=== PATIENT | female | born 1985 | race Caucasian/White ===

== ENCOUNTER 2021-01-15 08:51 | Outpatient (REF) | payer OTHER, SELFPAY | END 2021-01-15 08:52 | disposition home or self-care (01) | LOC: HO.WFDLDS 08:51 | PROVIDERS: PCP Internal Medicine; Visit Provider Internal Medicine | DX: Z20.822 Contact with and (suspected) exposure to COVID-19 (principal) | CPT/HCPCS: 36415; C9803; U0003; U0005 ==

== ENCOUNTER 2025-02-26 10:15 | Outpatient (AMB) | payer OTHER, SELFPAY ==
--- NOTE | 2025-02-26 10:36 | A.OFFPC_ITS ---
Vital Signs 02/26/25 10:41 Height 5 ft 4.96 in Weight 172 lb BMI 28.7 BP 102/70 Blood Pressure Location Rt brachial Position Sitting Respiration 14 Pulse 72 Pulse Source Pulse Oximeter Temp 98 F Temp Source Oral Pulse Oximetry (%) 99 Oxygen Delivery Method Room Air Intake Visit Reasons: nba from [facility] Intake Note: New patient visit Doctor Of Podiatric Medicine Required: No Allergies bupropion [From Wellbutrin] Allergy (Severe, Verified 02/26/25 10:39) Hives Tobacco use date assessed: 02/26/25 Dental Screening Dental Screen Date: 02/26/25 Did you have a dental visit in the last 12 months?: Yes Did you have a dental problem in the last 6 months where you did not have access to dental care?: No Was dental information given to patient?: Patient has dentist HPI nba from [facility] HPI Details Patient is a 39-year-old female who [facility] She is transferring from [facility]. General: She works hard on diet and weight loss. Following with weight watchers for glp1. States that she has lost 25 lb so far with this over the last 5 months. 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 Following with [facility]. Progress Clerk: UTD-she does report today that she has had an increase in frequency of menstruation with shorter cycles and heavier periods. She did follow with her crane service technician who recommended going on an OCP. She states that she has felt very sick in the past with the OCPs and would like to have her hormones checked. She is interested in hormone replacement therapy if indicated. Mammo: Due this year. Booked in April. [facility] Surgical History (Updated 02/26/25 @ 10:44 by Cari Beaver CMA) History of tonsillectomy Family History (Updated 02/26/25 @ 10:48 by Cari Beaver CMA) Father HTN (hypertension) High blood cholesterol Paternal Grandfather HTN (hypertension) High blood cholesterol Paternal Grandmother Colon cancer Liver cancer Maternal Grandmother Alcoholic Other FH: mental illness Substance abuse Social History Housing: House Alcohol intake: current Patient Tobacco Use Status: Never used Tobacco e-Cigarette/Vaping Use: Never Used Second Hand Smoke Exposure: No service: No Current occupational status: employed 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 1. Little interest or pleasure in doing things: not at all 2. Feeling down, depressed, or hopeless: not at all 3. Trouble falling or staying asleep, or sleeping too much: several days 4. Feeling tired or having little energy: several days 5. Poor appetite or overeating: not at all 6. Feeling bad about yourself - or that you are a failure or have let yourself or your family down: not at all 7. Trouble concentrating on things, such as reading the newspaper or watching television: not at all 8. Moving or speaking so slowly that other people could have noticed. Or the opposite - being so fidgety or restless that you have been moving around a lot more than usual: not at all 9. Thoughts that you would be better off or of hurting yourself in some way: not at all Total score: 2 Depression Screening Interpretation: Negative Depression Screening Done: Yes 58508 - PHQ-9 Billing: Yes Source: Developed by Drs. Grabiel Higgins, Kim Rome, Ibrahima Medrano and colleagues, with an educational alexa from [employer]. Thrive Questionnaire Date Thrive assessed: 02/23/25 I am a: Patient What is your living situation today?: I have a steady place to live Within the past 12 months, did the food you bought not last and you didn't have the money to get more?: Never true Within the past 12 months, did you worry whether your food would run out before you got money to buy more?: Never true Do you have trouble paying for medicines?: No Do you have trouble getting transportation to medical appointments?: No Do you have trouble paying your heating and electricity bill?: No Do you have trouble taking care of your child, family member or friend?: No Do you have trouble with day-to-day activities such as bathing, preparing meals, shopping, managing finances, etc.?: No Are you currently unemployed and looking for a job?: No Are you interested in more education?: No Please select the resources that you would like help with: None Currently or been in a relationship where the following occur: No concerns reported THRIVE Score: 0 AUDIT C Alcohol Use Questionnaire (AUDIT-C) 1. How often do you have a drink containing alcohol?: 2-3 times a week 2. How many drinks containing alcohol do you have on a typical day when you are drinking?: 1 or 2 3. How often do you have six or more drinks on one occasion?: Less than monthly Total Score: 4 Score Reviewed/Action Taken: Yes KASSIDY-7 AMB Questionnaire KASSIDY-7 Feeling nervous, anxious, or on edge: 1 = Several days Not being able to stop or control worryin = Several days Worrying too much about different things: 1 = Several days Trouble relaxin = Several days Being so restless that it is hard to sit still: 0 = Not at all Becoming easily annoyed or irritable: 1 = Several days Feeling afraid as if something awful might happen: 0 = Not at all Total KASSIDY-7 score (0-4 normal; 5-9 mild; 10-14 moderate; 15-21 severe): 5 Source: Developed by Drs. Grabiel Higgins, Kim Rome, Ibrahima Medrano and colleagues, with an educational alexa from [employer]. KASSIDY-7 Assessment Billing KASSIDY-7 Assessment Tool: KASSIDY-7 Assessment 08788 Physical exam (Primary Care) PHQ-9: PHQ-9 Score PHQ-9: Total score 2 02/26/25 10:39 Depression Screening Interpretation: Negative Thrive Assessment: Date of Thrive Assessment Date Thrive assessed 02/23/25 02/26/25 10:39 Currently or been in a relationship where the following occur: No concerns reported Const Orientation/consciousness: patient oriented x3 HENMT Ears: hearing grossly normal bilaterally Neck Thyroid: Thyroid normal Lymphatic: no lymphadenopathy noted Resp Auscultation: clear to auscultation bilaterally Cardio Rate: regular rate Rhythm: regular rhythm Heart sounds: S1 normal heart sound present and S2 normal heart sound present GI Inspection: Yes normal to inspection Palpation (GI): Soft to palpation and Other GI palpation findings present (no ntender, no cva tenderness) Auscultation: normoactive bowel sounds Rectal Exam - Female: deferred Skin General skin exam: no rashes or lesions noted Neuro General: patient oriented x3, gait normal and no focal motor deficits Coding Level of Care Code Est Pt Level 4 (47766) Complex EM visit Add On G2211 Diagnoses Menorrhagia N92.0 Fatigue R53.83 Additional Codes PHQ-9 - 64990 - PHQ-9 Billing: Yes ([id number]) KASSIDY-7 Assessment Billing - KASSIDY-7 Assessment Tool: KASSIDY-7 Assessment 79495 ([id number]) Assessment & Plan Assessment & Plan (1) Menorrhagia: Code(s): N92.0 - Excessive and frequent menstruation with regular cycle Category: Medical Plan: Pelvic ultrasound ordered. We will follow up pending test results. Advised to follow up with Gynecology Did discuss with patient that I would not prescribe hormone replacement therapy but she could follow with functional medicine if she would like. (2) Fatigue: Code(s): R53.83 - Other fatigue Category: Medical Plan: Labs ordered. We will review. Orders: Orders Vitamin B12 and Folate Today N92.0 - Excessive and frequent menstruation with regular cycle, R53.83 - Other fatigue TSH reflex Free T4 Today N92.0 - Excessive and frequent menstruation with regular cycle, R53.83 - Other fatigue US pelvic and transvaginal Today N92.0 - Excessive and frequent menstruation with regular cycle Follicle Stimulating Hormone Today N92.0 - Excessive and frequent menstruation with regular cycle, R53.83 - Other fatigue, R63.5 - Abnormal weight gain Comprehensive [place]. Panel Fast Today N92.0 - Excessive and frequent menstruation with regular cycle, R53.83 - Other fatigue Complete Blood Count Auto Diff Today N92.0 - Excessive and frequent menstruation with regular cycle, R53.83 - Other fatigue Lipid Panel Today N92.0 - Excessive and frequent menstruation with regular cycle, Z13.220 - Encounter for screening for lipoid disorders UA CC w/rflx Micro + Cult Today N92.0 - Excessive and frequent menstruation with regular cycle, Z13.220 - Encounter for screening for lipoid disorders Cortisol Random Today N92.0 - Excessive and frequent menstruation with regular cycle, R53.83 - Other fatigue, R63.5 - Abnormal weight gain Estrad Free (Tot Ultra + Free) Today N92.0 - Excessive and frequent menstruation with regular cycle, R53.83 - Other fatigue, R63.5 - Abnormal weight gain Testosterone, Free/Total Today N92.0 - Excessive and frequent menstruation with regular cycle, R53.83 - Other fatigue, R63.5 - Abnormal weight gain
[2025-02-26 10:41] VITALS: BP 102/70; PULSE 72; RESP 14; TEMP 36.6; O2SAT 99; BMI 28.7
== END 2025-02-26 11:17 | disposition home or self-care (01) ==
LOC: HO.HMCFM 10:16
PROVIDERS: PCP Internal Medicine; Visit Provider Physician Assistant
DX: N92.0 Excessive and frequent menstruation with regular cycle (principal); R53.83 Other fatigue

== ENCOUNTER → 2025-02-26 10:15 | Outpatient (BNVA) | payer OTHER, SELFPAY | PROVIDERS: PCP Physician Assistant; Visit Provider Physician Assistant | DX: N92.0 Excessive and frequent menstruation with regular cycle (principal); R53.83 Other fatigue | CPT/HCPCS: 96127 ==

== ENCOUNTER 2025-08-15 13:01 | Outpatient (REF) | payer OTHER, SELFPAY ==
--- NOTE | ~2025-08-15 | US_ITS ---
CLINICAL HISTORY: N92.0 - Excessive and frequent menstruation with regular cycle US pelvis transabdominal and transvaginal Comparison: None provided Findings: Transabdominal scanning performed for overall anatomy. Transvaginal scanning performed for additional detail. Anteverted uterus is 8.0 cm length. There are myometrial 4.0 x 3.2 x 3.1 cm and 1.7 x 1.9 x 1.9 cm leiomyomata. Endometrium 13 mm thickness. Right ovary 4.2 x 2.8 x 2.1 cm. Left ovary 2.8 x 2.7 x 1.8 cm. Normal color Doppler of both ovaries. There is a thin-walled right ovarian 2.1 x 1.8 x 1.8 cm avascular hypoechoic mass, possible debris within a cyst. No free fluid. IMPRESSION: 1. Uterine myometrial leiomyomata. 2. Nonspecific prominent endometrium, possibly physiologic. Clinical follow-up if there is dysfunctional uterine bleeding, recommended. 3. Possible hemorrhagic right ovarian cyst. Consider an 8-12 week follow-up pelvic ultrasound to reassess. This document has been electronically signed by: Camilo Holm MD on 08/18/2025 08:41:28
--- OUTSIDE RECORDS SUMMARY | 2025-08-15 15:38 | XMS_ITS | Data Portability ---
Author Organization [facility] Lenny Ramirez [facility] Address [address] [place] [address] Care Team Providers Care Facility Rehab Director Name Role Phone RAE ANGELIA Primary Care Provider [phone] Assessment Encounter Date Assessment Date Assessment LastModified by Organization Details LastModified Time 11/21/2024 11/21/2024 Patient diagnosi s discussed with patient today. 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 Has well-maintained joint spaces on x-ray has no physical exam findings have been consistent with ligamentous or meniscal pathology. Discussed multiple treatment options to include anti-inflammatori es formal physical therapy and a cortisone injection. Patient was to go forward with a cortisone injection as she is currently getting ready for a trip as well as she will start working with a colleague of hers who is a physical therapist on a patellofemoral physical therapy program. Patient agrees to treatment plan. Discussed role of as needed injections every 3 to 6 months and call for such at her convenience. All questions asked and answered. [email or web address] Not available 11/21/2024 11:33:12 Plan of Treatment Reminders Order Date Submit Date Provider Last Modified By Organization Details Last Modified Time Details Appointments None record ed. Lab None record ed. Referral None record ed. Procedures None record ed. Surgeries None record ed. Imaging XR, knee, 4 or more view - room 213, R knee 4v 025 11/21/19 25 [email or web address] 1 [facility], [address], [address], [place], [address], 01/23/202 5 12:25:25 Medication Orders None record ed. Patient TargetsNo targets recorded. Patient InstructionsNo instructions recorded. Reason for Referral None Reported. Results Created Date Observation Date Name Description Value Unit Range Abnormal Flag Note LastModifiedBy Organization Detail LastModifiedTime 11/21/19 25 11/21/2024 XR, knee, 4 or more view http:/ [email or web address] ?Encry pted=s hAaTro YD8dLq bEUv6g %2BXZw aYqtaq 0bqfl% 2Fg9IQ a4ajBk vP9nXo QUaueC m3YtLR FvZlgJ JJ8mAn HZtai3 2b2530 AC0Kqb 3WBU6O kKiQtr Mw INTERFACE [facility] [address] [address], [place], [address], 11/21/2024 11:06:37 11/21/19 25 11/21/2024 XR, knee, 4 or more view [email or web address] ?Encry pted=s hAaTro YD8dLq bEUv6g %2BXZw aYqtaq 0bqfl% 2Fg9IQ a4ajBk vP9nXo QUaueC m3YtLR FvZlgJ JJ8mAn HZtai3 8s5231 AC0Kqb 3WBU6O kKiQtr MwF INTERFACE [facility] [address] [address], [place], [address], 11/21/2024 11:06:40 02/18/20 25 02/15/2025 MRI, knee, w/o contr ast [facility] Access ion Number : [id number] Mona carlton Name: Sheri Landa Record Number : [id number] Date of : 1984 Date of Exam: 2024 Referr ing Physic greg: [facility] [address] , [address] [place] [address] Exam: MR Knee (C-) CPT 22851 - Right Room Descri ption: [facility] Pion 3T Histor y: Pain in the right knee, questi on medial menisc al tear. The patien t report s diffus e right knee pain which varies in severi ty since 2023. Techni que: MRI of the right knee was perfor med withou t intrav enous contra st. Compar allen: None. Findin gs: Joint effusi on: No joint effusi on is presen t. Hoffa' s fat pad is unrema rkable . Mild nonspe cific edema is seen in the superi or aspect of the prefem oral fat. Menisc i: The medial and latera l menisc us both appear normal . No menisc al tear is seen. Tendon s and ligame nts: The ACL and PCL are intact . The collat eral ligame nts are unrema rkable . The ilioti bial band is unrema rkable . The extens or mechan ism appear s normal . Articu lar cartil age: The articu lar cartil age is normal in thickn ess. No focal defect s are seen. Bone: The bone and bone marrow are normal . Impres lisandro: 1. No eviden ce of menisc al or crucia te ligame nt tear. 2. Mild nonspe cific edema in the superi or aspect of the prefem oral fat pad.. Electr onical ly Signed By: Naomi Bernardo ra, MD [email or web address] [facility] ([facility]) [address], [place], [address], 02/21/2025 11:33:44 Result Notes Documentation Provider Name and Address Organization Details Recorded Time Xr, Knee, 4 Or More View : [email or web address] Encrypted=jsSqIrbZL8xTvkQ Uv6g%7UFSfsLmnmz9gspx%2Fg 5POr0epTxhO6uLoCJxwnOa3Uz EGZoHrsFAP8pQxHDfvt26z803 5RM4Xph4JTT8JtCoZwfHnK Not Available [facility] 11/21/2024 11:06:38 Xr, Knee, 4 Or More View : [email or web address] Encrypted=hrKgTqkKH0uTwiG Uv6g%4XSEefSbrdt5jtip%2Fg 0PBz7feRzeX0oTxDPerkYk0Zn HTPsBnqMIJ9nUsPJnem23a380 5DR6Lze1GBK2XhAeXypHdH Not Available [facility] 11/21/2024 11:06:40 Mri, Knee, W/o Contrast : [facility] Accession Number: [id number] Patient Name: Sheri Landa Date of : 1985 Date of Exam: 02-15-2025 Referring Physician: Martin Blankenship [facility] [address] [place] [address], [address] [place] [address] Exam: MR Knee (C-) CPT 62908 - Right Room Description: [facility] Pion 3T History: Pain in the right knee, question medial meniscal tear. The patient reports diffuse right knee pain which varies in severity since August 2024. Technique: MRI of the right knee was performed without intravenous contrast. Comparison: None. Findings: Joint effusion: No joint effusion is present. Hoffa's fat pad is unremarkable. Mild nonspecific edema is seen in the superior aspect of the prefemoral fat. Menisci: The medial and lateral meniscus both appear normal. No meniscal tear is seen. Tendons and ligaments: The ACL and PCL are intact. The collateral ligaments are unremarkable. The iliotibial band is unremarkable. The extensor mechanism appears normal. Articular cartilage: The articular cartilage is normal in thickness. No focal defects are seen. Bone: The bone and bone marrow are normal. Impression: 1. No evidence of meniscal or cruciate ligament tear. 2. Mild nonspecific edema in the superior aspect of the prefemoral fat pad.. Electronically Signed By: Naomi Blankenship PA-C [address] [place] [address] [facility], [place], [address], [facility] - [facility] 02/21/2025 11:33:44 Problems Name Problem SNOMED Code Status Onset Date Resolution Date Notes Provider Name and Address Organization Details Recorded Time No complaints 483297509 Active Status : 'A'; Not Available [facility] 4 09:21:15 Problem Notes None recorded. Procedures Surgical History Date Name Laterality Status Provider Name and Address Organization Details Recorded Time 5 Knee Kenalog 1cc L/R completed Martin Blankenship PA-C [address], [place], [address], [place] - [facility] 11/21/2024 11:31:22 Imaging Results None recorded. Procedure Notes None recorded. Medical Equipment None Reported. Allergies Allergen ID Allergen Name Allergen Category Reaction Reaction Severity Criticality Documentation Date Start Date Code Code System Note Provider Name and Address Organization Details Recorded Time 952576 Wellbutri n medicatio n Not available Not available Not available 01/01/20242021 55704 RxNorm Not Available [facility] 4 15:37:51 142348 Product containin g penicilli n (product) medicatio n Not available Not available Not available 01/01/20242017 64336 8001 SNOMED Not Available [facility] 4 15:37:51 Medications Name Sig Start Date Stop Date Status Note LastModified by Organization Details LastModified Time cyclobenzap rine 10 mg tablet TAKE 1 TABLET BY MOUTH 3 TIMES A DAY NEEDED FOR MUSCLE SPASM FOR 10 DAYS active Not Available Not Available No t Available fluconazole 150 mg tablet TAKE 1 TABLET BY MOUTH ONCE active Not Available Not Available No t Available clonazepam 0.5 mg tablet TAKE 1 TABLET BY MOUTH TWICE A DAY NEEDED FOR ANXIETY active Not Available Not Available No t Available clonazepam 2 mg tablet TAKE 1 TABLET BY MOUTH EVERY DAY AT BEDTIME NEEDED FOR SLEEP active Not Available Not Available No t Available zolpidem 10 mg tablet TAKE 1 TABLET BY MOUTH EVERY NIGHT FOR SLEEP active Not Available Not Available No t Available nitrofurant oin monohydrate /macrocryst als 100 mg capsule TAKE 1 CAPSULE BY MOUTH TWICE A DAY FOR 5 DAYS active Not Available Not Available No t Available eszopiclone 3 mg tablet TAKE 1 TABLET BY MOUTH EVERY NIGHT NEEDED FOR SLEEP active Not Available Not Available No t Available oxycodone HCl-oxycodo ne-ASA 1 every [address] under this medicatio n 10/12 completed Statu s: 'Disc ontin ued'; Not Available Not Available Not Available Vitals Date Recorded Body height Body mass index (BMI) Body weight Provider Name and Address Organization Details Last Updated DateTime 11/21/2024 170.18 cm 27.9 kg/m2 14395.44 g Damari Villa [place] - [facility] 11/21/2024 10:59:11 Social History None recorded. Functional Status None recorded. Mental Status None recorded. Family History Nothing Reported. Medical History Condition Response Headaches Y Gynecological HistoryNo gynecological history recorded. Obstetrics History GPAL:G 0 P 0 0 0 0 Past Encounters Encounter ID Performer Location Encounter Start Date Encounter Closed Date Diagnosis/Indication Diagnosis SNOMED-CT Code Diagnosis ICD10 Code Diagnosis IMO Codes Diagnosis Note [id number] SHAMAR Mcnally [address] [place] [address] 11/21/2024 10:31:54 12/03/2024 11:17:04 Pain of right knee joint 1982198350 35763 M25.561 896083 You have been provided with a cortisone injection in order to reduce the pain and inflammati on that you are experienci ng. The injection consists of two medication s. Cortisone (an anti-infla mmatory that will take 48-72 hours to take effect) and Lidocaine (a numbing agent that will last 2-3 hours). Please note that not everyone will have a lasting response following the injection. PATIENT INSTRUCTIO NSOnce the Lidocaine wears off, you may have an increase in your pain. I recommend icing the affected area for 20 minutes 3-4 times per day.It is recommende d that you refrain from any high level activities using the joint or limb that was injected for approximat rhina 24-48 hours. Normal day-to-day activities are generally not a problem.PO SSIBLE SIDE EFFECTSInd ividuals with dark complexion s may experience some skin discolorat ion locally at the site of the injection. There is the possibilit y of an increase in discomfort within 48 hours following the injection. This is called a f lare . To help minimize the chances of this, please see the post-injec tion instructio ns above.Ther e is a less than 1% chance of an infection. If you notice any signs of infection (redness, warmth, drainage, fever greater than 100 degrees) please call our office or contact us through the portal [facility]. Health Concerns Section Related Observation LastModified by Organization Detai ls LastModified Time None Recorded Concern Status LastModified by Organization Details LastModified Time None Recorded Advance Directives Directive None Recorded Payers Insurance Date Sequence Insurance Name Policy Number Policy [place] Covered Member ID [place] Member ID Guarantor Name 12/03/2024 1 [facility] [id number] Sheri Landa [id number] Sheri Landa Notes Date Note Type Note Provider Name and Address Organization Details Recorded Time 11/21/2024 text/html I am seeing the patient today under the supervision of who was available but who did not see the patient. Patient was in for evaluation of right knee pain. Patient reports pain has been going on for couple of months. Does not recall any specific injury to account for this. Patient was training for marathon over the summer but started shinsplints on that left side and transition to more weight training and seems to aggravate the knee. Pain discomfort is localized in the anterior aspect of that knee. Has difficulty with any sort of knee flexion activity to include kneeling squatting going up down stairs getting up from a seated position and even sitting for any extended length of time. Patient is on hfyu-byx-dvcndan anti-inflammatories home stretching strengthening program without benefit. Patient has had no previous injury surgeries or cortisone injections Martin Blankenship PA-C [address] [facility] [address] [facility] [address], [place], [address], [place] [facility] 11/21/2024 11:33:49 OBGyn Episode No OBEpisode recorded.
== END 2025-08-15 13:02 | disposition home or self-care (01) ==
LOC: HO.HMGCX 13:01
PROVIDERS: PCP Internal Medicine; Visit Provider Physician Assistant
DX: N92.0 Excessive and frequent menstruation with regular cycle (principal)
CPT/HCPCS: 76830; 76856

== ENCOUNTER → 2025-08-15 13:03 | Outpatient (BNV) | payer OTHER, SELFPAY | PROVIDERS: PCP Internal Medicine; Visit Provider Specialist | DX: D25.9 Leiomyoma of uterus, unspecified (principal); N92.0 Excessive and frequent menstruation with regular cycle | CPT/HCPCS: 76830; 76856 ==

== ENCOUNTER 2025-08-19 09:02 | Outpatient (REF) | payer OTHER, SELFPAY ==
[2025-08-19 09:26] LABS: MANUAL DIFF FLAG NO
[2025-08-19 09:49] LABS: Hematocrit 40.4 % (37.0-47.0); Hemoglobin 13.5 g/dl (12.0-16.0); Imm Gran Abs Auto 0.03 X10*3/uL (0.00-0.03); Imm Gran Pct Auto 0.4 % (0.0-0.4); Lymphocytes Absolute Auto 2.4 X10*3/uL (1.2-4.9); Mean Corpuscular HGB Conc 33.4 g/dl (31.0-35.0); Mean Corpuscular Hemoglobin 30.5 pg (27.0-33.0); Mean Corpuscular Volume 91.4 fL (80.0-98.0); NRBC Abs Auto 0.000 X10*3/uL (0.0-0.012); NRBC Pct Auto 0.0 /100WBC (0.0-0.2); Platelet Count 322 X10*3/uL (160-400); Red Blood Count 4.42 X10*6/uL (4.20-5.50); White Blood Count 6.9 X10*3/uL (4.8-10.8)
[2025-08-19 10:27] LABS: Appearance Urine Clear; Glucose Urine UA Negative (Negative); PH 7.0 (5.0-9.0); Specific Gravity - Urine <= 1.005 (1.005-1.025)
[2025-08-19 11:30] LABS: Alanine Aminotransferase 24 U/L (0-31); Albumin Level 4.8 g/dL (3.5-5.0); Alkaline Phosphatase 49 U/L (39-117); Anion Gap 10 (12-20); Aspartate Amino Transferase 23 U/L (5-31); Blood Urea Nitrogen 9 mg/dL (9-16); Calcium 9.3 mg/dL (8.4-10.2); Carbon Dioxide 26 mmol/L (22-29); Chloride 104 mmol/L (96-108); Cholesterol 202 mg/dL (<200); Estimated Glomerular Filt Rate > 60; HDL Cholesterol 76 mg/dL (>40); Potassium 4.4 mmol/L (3.3-5.1); Sodium 136 mmol/L (135-145); Total Protein 7.3 g/dL (6.5-8.0); Triglycerides 51 mg/dL (<150)
[2025-08-19 11:51] LABS: Folate 9.1 ng/mL (> or = 4.0); Vitamin B12 515 pg/mL (200-900)
[2025-08-20 21:08] LABS: Follicle Stimulating Hormone 4.2 mIU/mL
[2025-08-30 17:04] LABS: Estradiol Free 4.40 pg/mL; Estradiol, Ultrasensitive 326 pg/mL
== END 2025-08-19 09:03 | disposition home or self-care (01) ==
LOC: HO.LAB 09:02
PROVIDERS: PCP Internal Medicine; Visit Provider Physician Assistant
DX: Z13.220 Encounter for screening for lipoid disorders (principal); Z13.6 Encounter for screening for cardiovascular disorders; N92.0 Excessive and frequent menstruation with regular cycle; R53.83 Other fatigue; R63.5 Abnormal weight gain
CPT/HCPCS: 36415; 80053; 80061; 81003; 82533; 82607; 82670; 82681; 82746; 83001; 84402; 84403; 84443; 85025

== ENCOUNTER 2025-08-26 11:06 | Outpatient (AMB) | payer OTHER, SELFPAY ==
--- NOTE | 2025-08-26 11:16 | A.OFFPC_ITS ---
Vital Signs 08/26/25 11:20 Height 5 ft 6 in Weight 158 lb 6 oz BMI 25.6 BP 117/56 L Blood Pressure Location Rt brachial Position Sitting Respiration 16 Pulse 81 Pulse Source Pulse Oximeter Temp 98.2 F Temp Source Oral Pulse Oximetry (%) 100 Oxygen Delivery Method Room Air Intake Visit Reasons: cpe Intake Note: patient here for CPE Circulation Tender Required: No Is last menstrual period known: Yes Last menstrual period: 08/24/25 Post menopausal: No Patient : No Allergies bupropion (From Wellbutrin) Allergy (Severe, Verified 08/26/25 11:19) Hives Tobacco use date assessed: 08/26/25 Dental Screening Dental Screen Date: 08/26/25 Did you have a dental visit in the last 12 months?: Yes Did you have a dental problem in the last 6 months where you did not have access to dental care?: No Was dental information given to patient?: Patient has dentist HPI HPI Comments History of Present Illness Details Patient is a 40-year-old female with a past medical history of anxiety, knee pain presenting for CPE She works hard on diet and weight loss. Following with weight watchers and was doing glp1 though them. Then weight watchers stopped offering GLP. MSK: History of right knee pain. Patella femoral syndrome. Following with [facility]. Pluck Trimmer: referred. DUB. Recent u/s. Will need repeat-she does report today that she has had an increase in frequency of menstruation with shorter cycles and heavier periods. She did follow with her cotton cleaner who recommended going on an OCP. She states that she has felt very sick in the past with the OCPs and would like to have her hormones checked. She is interested in hormone replacement therapy if indicated. Anxiety: on clonazepam as needed Mammo: April Mammo-going to be going every 6 months for 2 years for dense breast tissue. [facility] ROS CONSTITUTIONAL: Denies weight loss, fever and chills. HEENT: Denies changes in vision and hearing. RESPIRATORY: Denies SOB and cough. CV: Denies palpitations and CP GI: Denies abdominal pain, nausea, vomiting and diarrhea. : Denies dysuria and urinary frequency. MSK: Denies new myalgia and joint pain. SKIN: Denies rash and pruritus. NEUROLOGICAL: Denies headache PSYCHIATRIC: Denies recent changes in mood. PHYSICAL EXAM: GENERAL: Alert and oriented x 3. NAD EYES: EOMI. Anicteric. HENT: Moist mucous membranes. No scleral icterus. No cervical lymphadenopathy. LUNGS: Clear to auscultation bilaterally. CARDIOVASCULAR: Regular rate and rhythm. No murmur. No JVD. ABDOMEN: Soft, non-tender +bs EXTREMITIES: No edema. Non-tender. SKIN: No rashes or lesions. Warm. NEUROLOGIC: No focal neurological deficits. CN II-XII grossly intact PSYCHIATRIC: Cooperative. Appropriate mood and affect [facility] Surgical History (Updated 02/26/25 @ 10:44 by Cari Beaver CMA) History of tonsillectomy Family History (Updated 02/26/25 @ 10:48 by Cari Beaver CMA) Father HTN (hypertension) High blood cholesterol Paternal Grandfather HTN (hypertension) High blood cholesterol Paternal Grandmother Colon cancer Liver cancer Maternal Grandmother Alcoholic Other FH: mental illness Substance abuse Social History (Updated 02/26/25 @ 10:48 by Cari Beaver CMA) Housing: House Alcohol intake: current Patient Tobacco Use Status: Never used Tobacco e-Cigarette/Vaping Use: Never Used Second Hand Smoke Exposure: No service: No Current occupational status: employed 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 1. Little interest or pleasure in doing things: several days 2. Feeling down, depressed, or hopeless: not at all 3. Trouble falling or staying asleep, or sleeping too much: several days 4. Feeling tired or having little energy: several days 5. Poor appetite or overeating: several days 6. Feeling bad about yourself - or that you are a failure or have let yourself or your family down: several days 7. Trouble concentrating on things, such as reading the newspaper or watching television: several days 8. Moving or speaking so slowly that other people could have noticed. Or the opposite - being so fidgety or restless that you have been moving around a lot more than usual: not at all 9. Thoughts that you would be better off or of hurting yourself in some way: not at all Total score: 6 Depression Screening Interpretation: Positive Depression Screening Done: Yes 39826 - PHQ-9 Billing: Yes Source: Developed by Drs. Grabiel Higgins, Kim Rome, Ibrahima Medrano and colleagues, with an educational alexa from [employer] Thrive Questionnaire Date Thrive assessed: 08/26/25 I am a: Patient What is your living situation today?: I have a steady place to live Within the past 12 months, did the food you bought not last and you didn't have the money to get more?: Never true Within the past 12 months, did you worry whether your food would run out before you got money to buy more?: Never true Do you have trouble paying for medicines?: No Do you have trouble getting transportation to medical appointments?: No Do you have trouble paying your heating and electricity bill?: No Do you have trouble taking care of your child, family member or friend?: No Do you have trouble with day-to-day activities such as bathing, preparing meals, shopping, managing finances, etc.?: No Are you currently unemployed and looking for a job?: No Are you interested in more education?: No Please select the resources that you would like help with: None Currently or been in a relationship where the following occur: No concerns reported THRIVE Score: 0 AUDIT C Alcohol Use Questionnaire (AUDIT-C) 1. How often do you have a drink containing alcohol?: 2-3 times a week 2. How many drinks containing alcohol do you have on a typical day when you are drinking?: 1 or 2 3. How often do you have six or more drinks on one occasion?: Monthly Total Score: 5 KASSIDY-7 AMB Questionnaire KASSIDY-7 Date KASSIDY - 7 assessed: 08/26/25 Feeling nervous, anxious, or on edge: 1 = Several days Not being able to stop or control worryin = Not at all Worrying too much about different things: 1 = Several days Trouble relaxin = Several days Being so restless that it is hard to sit still: 0 = Not at all Becoming easily annoyed or irritable: 1 = Several days Feeling afraid as if something awful might happen: 0 = Not at all Total KASSIDY-7 score (0-4 normal; 5-9 mild; 10-14 moderate; 15-21 severe): 4 Source: Developed by Drs. Grabiel Higgins, Kim Rome, Ibrahima Medrano and colleagues, with an educational alexa from [employer] ([employer]). KASSIDY-7 Assessment Billing KASSIDY-7 Assessment Tool: KASSIDY-7 Assessment 19626 Physical exam (Primary Care) Vital Signs: Last Vital Signs Temp 98.2 F 08/26/25 11:20 Pulse 81 08/26/25 11:20 Resp 16 08/26/25 11:20 BP 117/56 L 08/26/25 11:20 Pulse Ox 100 08/26/25 11:20 Oxygen Delivery Method Room Air 08/26/25 11:20 BMI result Body Mass Index 25.6 Tobacco/Smoking Status: Tobacco use Status Tobacco use date assessed 08/26/25 08/26/25 11:26 Patient Tobacco Use Status Never used Tobacco 08/26/25 11:17 e-Cigarette/Vaping Use Never Used 08/26/25 11:17 PHQ-9: PHQ-9 Score PHQ-9: Total score 6 08/26/25 11:44 Depression Screening Interpretation: Positive Thrive Assessment: Date of Thrive Assessment Date Thrive assessed 08/26/25 08/26/25 11:26 Currently or been in a relationship where the following occur: No concerns reported Coding Level of Care Code Est Pt Prev Care 40-64y(16951) Diagnoses Physical exam Z00.00 DUB (dysfunctional uterine bleeding) N93.8 Dyslipidemia E78.5 Additional Codes KASSIDY-7 Assessment Billing - KASSIDY-7 Assessment Tool: KASSIDY-7 Assessment 47306 ([id number]) PHQ-9 - 83745 - PHQ-9 Billing: Yes ([id number]) Assessment & Plan Assessment & Plan (1) Physical exam: Code(s): Z00.00 - Encounter for general adult medical examination without abnormal findings (2) DUB (dysfunctional uterine bleeding): Code(s): N93.8 - Other specified abnormal uterine and vaginal bleeding Category: Medical (3) Dyslipidemia: Code(s): E78.5 - Hyperlipidemia, unspecified Category: Medical Plan 40 year old for cpe Interval history reviewed Preventive measures for age discussed Anxiety stable on clonazepam DUB, abnormal u/s-repeat ordered Orders: Referrals VIDEO LIBRARY ASSISTANT Referral N93.8 - Other specified abnormal uterine and vaginal bleeding, R93.89 - Abnormal findings on diagnostic imaging of other specified body structures Medications: New Zepbound (tirzepatide (weight loss)) for 4 weeks 2.5 mg (0.5 mL) subcut QWEEK 2 mL 1RF NS E66.3 - Overweight, E78.5 - Hyperlipidemia, unspecified Zepbound (tirzepatide (weight loss)) 2.5 mg (0.5 mL) subcut QWEEK 2 mL 0RF 4 weeks NS E66.3 - Overweight, E78.5 - Hyperlipidemia, unspecified fluconazole 150 mg PO DAILY 14 tabs 1RF 14 days
[2025-08-26 11:20] VITALS: BP 117/56; PULSE 81; RESP 16; TEMP 36.8; O2SAT 100; BMI 25.6
== END 2025-08-26 12:06 | disposition home or self-care (01) ==
LOC: HO.HMCFM 11:07
PROVIDERS: PCP Internal Medicine; Visit Provider Internal Medicine
DX: Z00.00 Encounter for general adult medical examination without abnormal findings (principal); N93.8 Other specified abnormal uterine and vaginal bleeding; E78.5 Hyperlipidemia, unspecified

== ENCOUNTER → 2025-08-26 11:06 | Outpatient (BNVA) | payer OTHER, SELFPAY | PROVIDERS: PCP Internal Medicine; Visit Provider Internal Medicine | DX: Z00.00 Encounter for general adult medical examination without abnormal findings (principal); N93.8 Other specified abnormal uterine and vaginal bleeding; E78.5 Hyperlipidemia, unspecified; F41.9 Anxiety disorder, unspecified; M25.561 Pain in right knee; R93.89 Abnormal findings on diagnostic imaging of other specified body structures; Z79.899 Other long term (current) drug therapy; Z13.31 Encounter for screening for depression; Z13.39 Encounter for screening examination for other mental health and behavioral disorders | CPT/HCPCS: 96127 ==

== ENCOUNTER 2025-09-17 11:11 | Outpatient (REF) | payer OTHER, SELFPAY | END 2025-09-17 11:12 | disposition home or self-care (01) | LOC: HO.LAB 11:11 | PROVIDERS: PCP Internal Medicine; Visit Provider Advanced Practice Midwife | DX: N83.201 Unspecified ovarian cyst, right side (principal); D21.9 Benign neoplasm of connective and other soft tissue, unspecified; N93.8 Other specified abnormal uterine and vaginal bleeding; Z32.02 Encounter for pregnancy test, result negative | CPT/HCPCS: 81025 ==

== ENCOUNTER 2025-09-17 11:11 | Outpatient (AMB) | payer OTHER, SELFPAY ==
--- NOTE | 2025-09-17 11:29 | MHC.OFFVIS ---
Vital Signs 09/17/25 11:31 Height 5 ft 6 in Weight 158 lb BMI 25.5 BP 110/72 Intake Visit Reasons: AUB Harness Cleaner: Harness Cleaner Present (Skye) Allergies bupropion (From Wellbutrin) Allergy (Severe, Verified 09/17/25 11:30) Hives Is last menstrual period known: Yes Last menstrual period: 09/17/25 HPI Comments Details: Patient is here today for a new patient consult due to HMB over the last year. Regular cycles x HMB 2-3d/5d. She reports Pap up-to-date that shear, and/or discussion with her provider she was told that the bleeding could be treated with control, she opted no treatment.She denies any pelvic pain. Contraception- vasectomy. She tried the Mirena IUD many years ago for 1 week and discontinued use due to pain, she reports a difficult insertion. Recent labs TSH-0.86, hemoglobin 13.5. She reports recent mammogram has a six-month recall to observe a specific area. No mammogram records available today. She denies any contraindications to control such as: migraines with aura, history of DVT or pulmonary emboli, high blood pressure, liver disease, thrombolic disorders, Lupus, +KEYLA, breast cancer, or smoking. [facility] Medical History (Updated 09/17/25 @ 13:07 by Meagan Rashid CNM) Refusal of blood product Fibroid Dyslipidemia Menorrhagia Surgical History History of ankle surgery History of tonsillectomy Family History Father HTN (hypertension) High blood cholesterol Paternal Grandfather HTN (hypertension) High blood cholesterol Paternal Grandmother Colon cancer Liver cancer Maternal Grandmother Alcoholic Other FH: mental illness Substance abuse Social History Housing: House Alcohol intake: current Patient Tobacco Use Status: Never used Tobacco e-Cigarette/Vaping Use: Never Used Second Hand Smoke Exposure: No service: No Current occupational status: employed 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 Current occupational exposures/hazards: No Cognitive needs: No Hearing needs: No Vision needs: No Female Reproductive History Menstrual Date of last menstrual period: 09/17/25 control method: other (vasectomy) Total pregnancies: 0 Review of Systems Const All systems reviewed & are unremarkable except as noted in HPI and below Physical Exam Vital Signs: Last Vital Signs BP 110/72 09/17/25 11:31 BMI result Body Mass Index 25.5 Const General: cooperative, healthy appearing and no acute distress Orientation/consciousness: patient oriented x3 GI Inspection: Yes normal to inspection Palpation (GI): Soft to palpation and Other GI palpation findings present (Nontender) Rectal Exam - Female: visual inspection normal General: Yes bladder normal to palpation External Female Exam: normal appearance of the urethra Speculum Exam - Vagina: normal appearance of the vagina, normal palpation, normal vaginal discharge and vaginal bleeding Speculum Exam - Cervix: normal appearance of the cervix and normal palpation Bimanual exam- vagina & uterus: normal bimanual exam, normal palpation, uterine size normal, bladder normal to palpation, normal palpation, uterine shape normal and enlarged Bimanual Exam- Adnexa, other: normal adnexae OB/external & speculum: vaginal bleeding Neuro General: patient oriented x3 Results AMB Test Urine AMB Test Urine Negative Last Edit by CRISTINA Hernandez on 09/17/25 11:35 Results Reviewed Results Reviewed: Laboratory Last Values Tst Clinic Negative 09/17/25 11:34 [facility] [address] [place] [address] [place] [address] Ultrasound Report Signed Patient: Sheri Landa MR#: [id number] : 1985 Acct:[id number] Age/Sex: 40 / F ADM Date: 08/15/25 Loc: HO.HMGCX Attending Dr: Mi Coates PA-C Ordering Physician: Mi Coates Date of Service: 08/15/25 Procedure(s): US pelvic and transvaginal Accession Number(s): [id number] cc: Mi Coates; Michelle Feliz MD~ Reason for Exam: N92.0 - Excessive and frequent menstruation with regular cycle CLINICAL HISTORY: N92.0 - Excessive and frequent menstruation with regular cycle US pelvis transabdominal and transvaginal Comparison: None provided Findings: Transabdominal scanning performed for overall anatomy. Transvaginal scanning performed for additional detail. Anteverted uterus is 8.0 cm length. There are myometrial 4.0 x 3.2 x 3.1 cm and 1.7 x 1.9 x 1.9 cm leiomyomata. Endometrium 13 mm thickness. Right ovary 4.2 x 2.8 x 2.1 cm. Left ovary 2.8 x 2.7 x 1.8 cm. Normal color Doppler of both ovaries. There is a thin-walled right ovarian 2.1 x 1.8 x 1.8 cm avascular hypoechoic mass, possible debris within a cyst. No free fluid. IMPRESSION: 1. Uterine myometrial leiomyomata. 2. Nonspecific prominent endometrium, possibly physiologic. Clinical follow-up if there is dysfunctional uterine bleeding, recommended. 3. Possible hemorrhagic right ovarian cyst. Consider an 8-12 week follow-up pelvic ultrasound to reassess. This document has been electronically signed by: Camilo Holm MD on 08/18/2025 08:41:28 Dictated By: Camilo Holm MD Signed By: <Electronically signed by Camilo Holm MD in OV> 08/18/2542 DD/ 0 TD/TT: 08/18/25840 Satellite Tv Installer: Assessment & Plan Assessment & Plan (1) Fibroid: Code(s): D21.9 - Benign neoplasm of connective and other soft tissue, unspecified Category: Medical Plan: Counseled re: Leiomyoma: common pelvic neoplasm. Differential diagnosis-may include but not limited to- leiomyosarcoma which is a rare uterine sarcoma 3-7/100,000, difficult to distinguish from fibroids on ultrasound from uterine sarcoma's. Unlikely any single test will have a highly positive predictive value. Hysterectomy is not recommended for sole purpose of excluding malignant neoplasm. Consult for surgical exploration, medical treatment, other treatments, verses expectant management, pros and cons, risks and benefits. Expectant management follow up in 6 months, then yearly for stability. Patient prefers to proceed with expectant management. Referral to MD if indicated for level of care if indicated Report any AUB, pelvic pressure, bloating, or pain. The patient expressed understanding and agreement with the plan of care. All of her questions and concerns were addressed to the best of my ability. (2) Ovarian cyst: Code(s): N83.209 - Unspecified ovarian cyst, unspecified side Category: Medical Qualifiers: Laterality: right Qualified Code(s): N83.201 - Unspecified ovarian cyst, right side Plan: Counseled regarding ultrasound findings right ovarian cyst, most likely benign and will resolve on its own. Follow up ultrasound recheck 8 weeks. Call if any pelvic pain. Follow up pending ultrasound results. The patient expressed understanding and agreement with the plan of care. All of her questions and concerns were addressed to the best of my ability. (3) Abnormal uterine bleeding (AUB): Code(s): N93.9 - Abnormal uterine and vaginal bleeding, unspecified Category: Medical Plan: Reviewed workup for AUB to include cervical cultures, counseled regarding treatment options plan to include the Mirena IUD, other control options. Follow up pending results for final decision on cycle control options. The patient expressed understanding and agreement with the plan of care. All of her questions and concerns were addressed to the best of my ability. Plan This note is constructed using voice recognition software. While every effort has been made to ensure accuracy, assembly associate errors may have been included. Orders: Orders AMB HCG Urine Test Today N93.8 - Other specified abnormal uterine and vaginal bleeding US pelvic and transvaginal 01/27/26 D21.9 - Benign neoplasm of connective and other soft tissue, unspecified Bacterial Vaginosis Panel Today N93.9 - Abnormal uterine and vaginal bleeding, unspecified CT NG by PCR Vag/Cerv Today N93.9 - Abnormal uterine and vaginal bleeding, unspecified US pelvic and transvaginal 10/27/25 N83.209 - Unspecified ovarian cyst, unspecified side Coding Level of Care Code New Pt Level 3 (93115) Diagnoses Fibroid D21.9 Cyst of right ovary N83.201 Laterality: right Abnormal uterine bleeding (AUB) N93.9
[2025-09-17 11:31] VITALS: BP 110/72; BMI 25.5
--- OUTSIDE RECORDS SUMMARY | 2025-09-17 22:04 | XMS_ITS | Data Portability ---
Author Organization [facility] Address [address] [place] [address] Care Team Providers Care Forest Manager Name Role Phone RAE ANGELIA Primary Care Provider [phone] Assessment Encounter Date Assessment Date Assessment LastModified [...] [facility], [address], [place], [address], 01/23/202 5 12:25:25 Medication Orders None record [...] a4ajBk vP9nXo QUaueC m3YtLR FvZlgJ JJ8mAn HZtai3 8i9171 AC0Kqb 3WBU6O kKiQtr Mw INTERFACE [facility] [address] [address], [place], [address], 11/21/2024 11:06:37 11/21/19 25 11/21/2024 XR, knee, 4 or more view [email or web address] ?Encry pted=s hAaTro YD8dLq bEUv6g %2BXZw aYqtaq 0bqfl% 2Fg9IQ a4ajBk vP9nXo QUaueC m3YtLR FvZlgJ JJ8mAn HZtai3 3v7914 AC0Kqb 3WBU6O kKiQtr MwF INTERFACE [facility] [address] [address], [place], [address], 11/21/2024 11:06:40 02/18/20 25 02/15/2025 MRI, knee, w/o contr ast [facility] Access ion Number : [id number] Name: Sheri Landa Record Number : [id number] Date of : 1984 Date of Exam: 2024 Referr ing Physic greg: [facility] [address] [facility] [address] , [address] [place] [address] Exam: MR Knee (C-) CPT 00653 - Right Room Descri ption: [facility] Pion 3T Histor y: Pain in the [...] Signed By: Naomi Bernardo ra, MD [email or web address] [facility] ([facility]) [address], [place], [address], 02/21/2025 11:33:44 Result Notes Documentation Provider Name and Address Organization Details Recorded Time Xr, Knee, 4 Or More View : [email or web address] Encrypted=bzCfGgwOH8sXixF Uv6g%4MQJfbWrdgp3qacm%2Fg 4KFy6eyOthI9jXfYTgoyIz6Qf ENDvOsxWHD5xGbWUcin45i257 7KZ2Rge4TAN4UoImYoeBqC Not Available [facility] 11/21/2024 11:06:38 Xr, Knee, 4 Or More View : [email or web address] Encrypted=swLhAumYW6yUjiB Uv6g%5ZLOuoFfczf0qbbo%2Fg 9UYg5snQnqF3oZuEOxebYm1Cg TYHcAkhRHS2mHlJOvwx19i170 9GA0Etn5VFI5DuWwMlxOyQ Not Available [facility] 11/21/2024 11:06:40 Mri, Knee, W/o Contrast : [facility] Accession Number: [id number] Patient Name: Sheri Landa Date of : 1985 Date of Exam: 02-15-2025 Referring Physician: Martin Blankenship [facility] ([facility]) [address] [place] [address], [address] [place] [address] Exam: MR Knee (C-) CPT 14707 - Right Room Description: [facility] Pion 3T History: Pain in the right [...] pad.. Electronically Signed By: Naomi Blankenship PA-C [address] [place] [address] [address] [facility], [place], [address], [facility] - [facility] 02/21/2025 11:33:44 Problems Name Problem SNOMED Code Status Onset Date Resolution Date Notes Provider Name and Address Organization Details Recorded Time No complaints 462948303 Active Status : 'A'; Not Available [facility] 4 09:21:15 Problem Notes None recorded. Procedures Surgical History Date Name Laterality Status Provider Name and Address Organization Details Recorded Time 5 Knee Kenalog 1cc L/R completed Martin Blankenship PA-C [address], [place], [address], [place] - [facility] 11/21/2024 11:31:22 Imaging Results None recorded. Procedure Notes None recorded. Medical Equipment None Reported. Allergies Allergen ID Allergen Name Allergen Category Reaction Reaction Severity Criticality Documentation Date Start Date Code Code System Note Provider Name and Address Organization Details Recorded Time 964221 Wellbutri n medicatio n Not available Not available Not available 01/01/20242021 23610 RxNorm Not Available [facility] 4 15:37:51 033936 Product containin g penicilli n (product) medicatio n Not available Not available Not available 01/01/20242017 92000 8001 SNOMED Not Available [facility] 4 15:37:51 Medications Name Sig Start Date [...] Updated DateTime 11/21/2024 170.18 cm 27.9 kg/m2 89775.44 g [place] - [facility] 11/21/2024 10:59:11 Social History [...] ICD10 Code Diagnosis IMO Codes Diagnosis Note [id number] SHAMAR Mcnally [address] [place] [address] 11/21/2024 10:31:54 12/03/2024 11:17:04 Pain of right knee joint 9601855827 96565 M25.561 697859 You have been provided with a cortisone [...] [place] Member ID Guarantor Name 12/03/2024 1 [facility] [id number] Sheri Landa [id number] Sheri Landa Notes Date Note Type Note [...] extended length of time. Patient is on uqwl-qbi-ctynysr anti-inflammatories home stretching strengthening program without benefit. Patient has had no previous injury surgeries or cortisone injections Martin Blankenship PA-C [address] [facility] [address], [place], [address], [place] - [facility] 11/21/2024 11:33:49 OBGyn Episode No OBEpisode recorded.
== END 2025-09-17 12:38 | disposition home or self-care (01) ==
LOC: HO.HWS 11:12
PROVIDERS: PCP Internal Medicine; Visit Provider Advanced Practice Midwife
DX: D21.9 Benign neoplasm of connective and other soft tissue, unspecified (principal); N83.201 Unspecified ovarian cyst, right side; N93.9 Abnormal uterine and vaginal bleeding, unspecified; N93.8 Other specified abnormal uterine and vaginal bleeding
CPT/HCPCS: 99203

== ENCOUNTER 2025-09-17 12:05 | Outpatient (REF) | payer OTHER, SELFPAY ==
[2025-09-17 17:37] LABS: Bacterial Vaginosis PCR NEGATIVE (Negative); Candida Group PCR NOT DETECTED (Not Detect); Candida glab krusei PCR NOT DETECTED (Not Detect); Trichomonas vaginalis PCR NOT DETECTED (Not Detect)
[2025-09-17 18:00] LABS: CT PCR NOT DETECTED (Not Detect.); NG PCR NOT DETECTED (Not Detect.)
== END 2025-09-17 12:06 | disposition home or self-care (01) ==
LOC: HO.LNP 12:05
PROVIDERS: Visit Provider Advanced Practice Midwife
DX: Z20.2 Contact with and (suspected) exposure to infections with a predominantly sexual mode of transmission (principal); N93.9 Abnormal uterine and vaginal bleeding, unspecified
CPT/HCPCS: 81515; 87491; 87591

== ENCOUNTER 2025-10-29 11:56 | Outpatient (REF) | payer OTHER, SELFPAY ==
--- NOTE | ~2025-10-29 | US_ITS ---
EXAMINATION: US PELVIS CLINICAL INFORMATION: 5 month follow-up, leiomyoma of uterus. Benign neoplasm of connective and other soft tissue, unspecified. 40-year-old female. LMP = 10/12/2025. COMPARISON: Pelvic ultrasound 08/15/2025. TECHNIQUE: Ultrasound of the pelvis is performed using both transabdominal and transvaginal transducers along with Doppler. Transvaginal imaging is performed due to inadequate visualization transabdominally. FINDINGS: Uterus: The uterus is anteverted and measures 9.4 x 5.4 x 5.3 cm. Uterine volume = 141 mL (previously calculated at 94 mL) The double wall endometrial thickness is 7 mm. It is uniform without irregularity. The uterus is smooth in contour and has heterogeneous myometrial echogenicity. There are 3 dominant fibroids present: -A dorsal subserosal mid uterine segment fibroid is present measuring 3.4 x 2.1 x 2.7 cm. (Previously 1.7 x 3.2 x 3.1 cm). -A large central fundal intramural fibroid is present measuring 4.2 x 3.7 x 3.4 cm. (Previously 4.0 x 3.2 x 3.1 cm). -A left fundal pedunculated fibroid was previously not seen, currently measuring 2.9 x 2.0 x 2.4 cm. Adnexa: Both ovaries are visualized. There is normal color flow to the adnexa. There is no ovarian torsion. There is no pelvic ascites or fluid collection. There are no adnexal masses. Right ovary measures 4.4 x 2.0 x 2.3 cm. Volume = 10.6 mL. Normal sonographic appearance. Previously seen complex cyst has resolved. Left ovary measures 3.6 x 2.0 x 2.6 cm. Volume = 9.8 mL. There is a likely hemorrhagic cysts present measuring 2.0 x 1.2 x 2.0 cm, new from prior. US/US pelvic and transvaginal IMPRESSION: 1. There are 3 dominant uterine fibroids as detailed above. Largest is central fundal intramural measuring 4.2 x 3.7 x 3.4 cm. 2. Normal endometrium at 7 mm thickness. 3. Normal right ovary. Previously seen complex cyst has resolved. 4. Left ovary demonstrates a new probable hemorrhagic cyst measuring 2.0 cm. Electronically signed by: Saad Banks MD 10/29/2025 01:19 PM ANN
--- OUTSIDE RECORDS SUMMARY | 2025-10-29 13:46 | XMS_ITS | Data Portability ---
Author Organization [facility], [facility] Address [address] [place] [address] Care Team Providers Care Belting Inspector Name Role Phone GayAngelia Ramirez Primary Care Provider Assessment Encounter Date Assessment Date Assessment LastModified [...] Treatment Reminders Order Date Submit Date Provider Name Organization Details Last Modified By Last Modified Time Details Appointments None record ed. Lab None record ed. Referral None record ed. Procedures None record ed. Surgeries None record ed. Imaging XR, knee, 4 or more view 10:59:5 5 SHAMAR Mcnally Office [address], [place], [address], Martin Blankenship PA-C 12:25:25 MedicationOrders None record ed. VaccineOrders None record ed. Patient TargetsNo targets recorded. Patient InstructionsNo instructions recorded. Reason for Referral None Reported. Results Created Date Observation Date Name Description Value Unit Range Abnormal Flag Specimen Type Note LastModifiedBy Organization Detail LastModifiedTime 11/21/2024 11/21/2024 knee 4 view [email or web address]=toSpNgqDF3eWsyHXs8t%9LPMcbMgyca5yqws%0Af4AAy2 ovRgfX1aLqIPamhOd5PuFKWqJhfGGG6gHyJNuhr21v9253BS2Vka1KJL2PgMoGdbSiL Not Available [facility] , [address] [facility] [address],[place] [address] , [place] , [address], , 11/21/2024 11:06:38 11/21/2024 11/21/2024 knee 4 view [email or web address]%7LRIihDrlth0xmbf%7Ho7EEb9 fbUaiM0mXfKHkvfJw3VkLKYeHeaXGN5oDkEXiiq35e7054MS5Mho1VPA8RhBlSonZpX Not Available [facility] , [address] [facility] [address] [address] , [place] , [address], , 11/21/2024 11:06:40 02/15/2025 02/15/2025 MR, knee (C-) right CPT 71080 [facility] cession Number: [id number] Patient Name: Dano Landa Date of : 1985 Date of Exam: 02-15-2025 Referring Physician: Martin Blankenship [facility] ([facility]) [address] [place] [address] [address] [place] [address] Exam: MR Knee (C-) CPT 64844 - Right Room Description: [facility] Pion 3T History: Pain in the right [...] pad.. Electronically Signed By: Naomi Blankenship PA-C [facility] ([facility]) , [address] [place] [address] , [address], [place] , 02/21/2025 11:33:44 Result Notes Documentation Provider Name and Address Organization Details Recorded Time Xr, Knee, 4 Or More View : [email or web address] Encrypted=zrEmOfnVI0dNklK Uv6g%9OJUtsYzacc5uagp%2Fg 6XDf2fiRngD7mExIDlkfCb9Ir GYLtRptGLU3cPlVZvzz08o988 2TG1Aco2VDK6EbBnGgpUfE Not Available [facility] 11/21/2024 11:06:38 Xr, Knee, 4 Or More View : [email or web address] Encrypted=deSdRbrNC2oYzlA Uv6g%7EDUijJoscm0omqx%2Fg 2ETj8dqRqrB1sVrNMzvcFs2Oa OFKiFeiQDQ1cNzLBifb99h846 6ZJ1Uiu1TIF8MiHbPwuLkQ Not Available [facility] 11/21/2024 11:06:40 Mri, Knee, W/o Contrast : [facility] Accession Number: [id number] Patient Name: Dano Landa Date of : 1985 Date of Exam: 02-15-2025 Referring Physician: Martin Blankenship [facility] ([facility]) [address] [place] [address], [address] [place] [address] Exam: MR Knee (C-) CPT 17396 - Right Room Description: [facility] Pion 3T History: Pain in the right [...] pad.. Electronically Signed By: Naomi Blankenship PA-C [address] [facility] [address] [facility], [place], [address], [facility] 02/21/2025 11:33:44 Problems Name Problem SNOMED Code Status Onset Date Resolution Date Notes Provider Name and Address Organization Details Recorded Time No complaints 127235963 Active Status : 'A'; Not Available [facility] 4 09:21:15 Problem Notes None recorded. Procedures Surgical History Date Name Laterality Status Provider Name and Address Organization Details Recorded Time 5 Knee Kenalog 1cc L/R completed Martin Blankenship PA-C [address] [facility] [address], [place], [address], [place] - [facility] 11/21/2024 11:31:22 Imaging Results Imaging Date Name Status LastModifiedBy Organiza tion Detail LastModifiedTime 11/21/2024 knee 4 view completed Not Available [facility] , [address] , [place] , [address], [place] , 11/21/2024 11:06:38 11/21/2024 knee 4 view completed Not Available [facility] , [address] , [place] , [address], [place] , 11/21/2024 11:06:40 02/15/2025 MR, knee (C-) right CPT 14197 completed Martin Blankenship PA-C [facility] ([facility]) , [address] , [place] , [address], [place] , 02/21/2025 11:33:44 Procedure Notes None recorded. Medical Equipment None Reported. Allergies Allergen ID Allergen Name Allergen Category Reaction Reaction Severity Criticality Documentation Date Start Date Code Code System Note Provider Name and Address Organization Details Recorded Time 781832 Wellbutri n medicatio n Not available Not available Not available 01/01/20242021 46126 RxNorm Not Available [facility] 15:37:51 131048 Product containin g penicilli n (product) medicatio n Not available Not available Not available 01/01/20242017 81131 8001 SNOMED Not Available [facility] 15:37:51 Medications Name Authored On Sig Start Date Stop Date Status Note Indication Fill Status Repeat Number Dispense Quantity LastModified by Organization Details LastModified Time oxyco done HCl-o xycod one-A SA 4 19:04:03 1 ever y 6 hour s prn pain do not mj douglas this medi geoff on 10/12 aborted Statu s: 'Disc ontin ued'; Not Available Not availab le 0 Not Available Not Available [facility] 01/01/2024 19:04:04 clona zepam 0.5 mg table t 5 10:32:23 TAKE 1 TABL ET BY MOUT H TWIC E A DAY NEED ED FOR ANXI ETY active Not Available Not availab le 0 Not Available Not Available [facility] 11/21/2024 10:32:23 clona zepam 2 mg table t 5 10:32:23 TAKE 1 TABL ET BY MOUT H EVER Y DAY AT BEDT MONISHA NEED ED FOR SLEE P active Not Available Not availab le 0 Not Available Not Available [facility] 11/21/2024 10:32:23 cyclo benza klaudia 10 mg table t 5 10:32:23 TAKE 1 TABL ET BY MOUT H 3 TIME S A DAY NEED ED FOR MUSC LE SPAS M FOR 10 DAYS active Not Available Not availab le 0 Not Available Not Available [facility] 11/21/2024 10:32:23 eszop iclon e 3 mg table t 5 10:32:23 TAKE 1 TABL ET BY MOUT H SHAQUILLE LEVIN T NEED ED FOR SLEE P active Not Available Not availab le 0 Not Available Not Available [facility] 11/21/2024 10:32:23 fluco nazol e 150 mg table t 5 10:32:23 TAKE 1 TABL ET BY MOUT H ONCE active Not Available Not availab le 0 Not Available Not Available [facility] 11/21/2024 10:32:23 nitro furan toin monoh ydrat e/mac rocry stals 100 mg capsu le 5 10:32:23 TAKE 1 CAPS ULE BY MOUT H TWIC E A DAY FOR 5 DAYS active Not Available Not availab le 0 Not Available Not Available [facility] 11/21/2024 10:32:23 zolpi dem 10 mg table t 5 10:32:23 TAKE 1 TABL ET BY MOUT H SHAQUILLE LEVIN T FOR SLEE P active Not Available Not availab le 0 Not Available Not Available [facility] 11/21/2024 10:32:23 Vitals Date Recorded Body height Body mass index (BMI) Body weight Provider Name and Address Organization Details Last Updated DateTime 11/21/2024 170.18 cm 27.9 kg/m2 66759.44 g Damari Villa [place] - [facility] 11/21/2024 10:59:11 Social History Social History Observation Description Date Observed Sex Unknown 02/11/2025 Legal Sex Female Status Not (finding) 10/29/20 25 No social history survey screeners recorded No social history SDOH screeners recorded Functional Status None recorded. No Functional Screening assessment recorded No Functional SDOH screeners recorded Mental Status None recorded. No Mental Screening assessment recorded No Mental SDOH screeners recorded Family History Nothing Reported. Medical History Condition Response Headaches Y Gynecological HistoryNo gynecological history recorded. Obstetrics History GPAL:G 0 P 0 0 0 0 Past Encounters Encounter ID Performer Location Encounter Start Date Encounter Closed Date Diagnosis/Indication Diagnosis SNOMED-CT Code Diagnosis ICD10 Code Diagnosis IMO Codes Diagnosis Note [id number] SHAMAR Mcnally [place] [address] [facility] [place] [address] 11/21/2024 10:31:54 12/03/2024 11:17:04 Pain of right knee joint 1427641946 44248 M25.561 833315 You have been provided with a cortisone [...] following the injection. This is called a juma arreaga . To help minimize the chances of [...] by Organization Details LastModified Time None Recorded SDOH Concern Status LastModified by Organization Detai ls LastModified Time None Recorded Advance Directives Directive None Recorded Payers Insurance Date Sequence Insurance Name Policy Number Policy [place] Covered Member ID [place] Member ID Guarantor Name 12/03/[address] [place] [address] [id number] Dano Landa [id number] Dano Landa Notes Date Note Type Note Provider [...] extended length of time. Patient is on dycu-pob-wvyihra anti-inflammatories home stretching strengthening program without benefit. Patient has had no previous injury surgeries or cortisone injections Martin Blankenship PA-C [address], [place], [address], [place] - [facility] 11/21/2024 11:33:49 Care Team Name Role Member ID Specialty Address Phone ANGELIA MCBRIDE MD Primary Care Provider [id number] [facility], [place], [place] OBGyn Episode No OBEpisode recorded.
== END 2025-10-29 11:57 | disposition home or self-care (01) ==
LOC: HO.US 11:56
PROVIDERS: PCP Internal Medicine; Visit Provider Advanced Practice Midwife
DX: D21.9 Benign neoplasm of connective and other soft tissue, unspecified (principal); N83.209 Unspecified ovarian cyst, unspecified side
CPT/HCPCS: 76830; 76856

== ENCOUNTER → 2025-10-29 12:00 | Outpatient (BNV) | payer OTHER, SELFPAY | PROVIDERS: PCP Internal Medicine; Visit Provider Radiology Diagnostic Radiology | DX: D25.1 Intramural leiomyoma of uterus (principal); N83.292 Other ovarian cyst, left side | CPT/HCPCS: 76830; 76856 ==